=== PATIENT | female | born 1990 | race Caucasian/White ===

== ENCOUNTER 2016-10-29 22:09 | Inpatient (IN) ==
[2016-10-29 22:30] LABS: Bilirubin,Urine Small (Negative); Blood,Urine Trace (Negative); Clarity,Urine Cloudy (Clear); Color,Urine Yellow (Yellow); Glucose,Urine (UA) Normal (Normal); Ketones,Urine Negative (Negative); Leukocyte Esterase,Urine Small (Negative); Nitrite,Urine Negative (Negative); Protein,Urine Negative (Neg-Trace); Urobilinogen,Urine Normal (Normal)
[2016-10-29 22:33] LABS: Bacteria,Urine Moderate per hpf (None-Few); Hyaline Casts,Urine None Seen per lpf (None-Few); Squamous Epithelial Cell,Urine Many per lpf (None-Few)
[2016-10-30 00:18] LABS: Basophils % 0.5 %; Eosinophils # 0.2 K/mcL (0.0-0.6); Eosinophils % 2.2 %; Hematocrit 41.7 % (35.3-44.9); Hemoglobin 13.4 g/dL (11.5-15.4); Immature Granulocytes % 0.2 % (0-4); Lymphocytes # 1.8 K/mcL (0.6-4.6); Lymphocytes % 21.9 %; Mean Corpuscular HGB Conc 32.1 g/dL (31.6-35.5); Mean Corpuscular Hemoglobin 26.2 pg (28.0-33.3); Mean Corpuscular Volume 81.6 fL (83.0-100.0); Mean Platelet Volume 9.8 fL (9.4-12.4); Monocytes # 0.7 K/mcL (0.0-1.3); Monocytes % 7.8 %; Neutrophils # 5.6 K/mcL (1.6-8.9); Platelet Count 265 K/mcL (140-400); Red Blood Count 5.11 M/mcL (3.82-4.97); Segmented Neutrophils % 67.4 %
[2016-10-30 00:33] LABS: Alanine Aminotransferase 959 Units/L (0-55); Albumin 3.9 g/dL (3.5-5.0); Alkaline Phosphatase 328 Units/L (38-126); Amylase 31 Units/L (25-125); Aspartate Amino Transferase 587 Units/L (5-34); BUN/Creatinine Ratio 13 (6-26); Bilirubin,Direct 3.7 mg/dL (0.0-0.5); Bilirubin,Indirect 1.3 mg/dL (0.0-1.2); Blood Urea Nitrogen 9 mg/dL (7-20); Calcium 9.7 mg/dL (8.6-10.8); Carbon Dioxide 25 mEq/L (19-29); Chloride 106 mEq/L (98-109); Glucose 104 mg/dL (70-99); Lipase 16 Units/L (8-78); Osmolality,Calculated 289 (280-300); Potassium 4.2 mEq/L (3.5-4.5); Sodium 140 mEq/L (136-145); Total Protein 7.9 g/dL (6.0-8.3); eGFR For African Americans > 60 (> 60); eGFR For Non-African Americans > 60 (> 60)
[2016-10-30] MEDS ORDERED: 0.9 % Sodium Chloride 1,000 ML IVC ONE (01:52)
--- NOTE | 2016-10-30 02:55 | Emergency Department Note ---
Disposition Clinical Impression: Abdominal pain, Elevated liver function tests Disposition: Admitted As Inpatient Condition: Fair Referrals: NO,PCP [Primary Care Provider] - Forms: Work/School Release, ED Satisfaction Letter Time of Disposition: 05:58 Abdominal Pain HPI - General Chief Complaint: ED Abdominal Pain Stated Complaint: back pain into abdomen Time Seen by Provider: 10/30/16 01:21 Source: patient Mode of arrival: private vehicle Limitations: no limitations Nursing Notes Reviewed: Yes Vital Signs Reviewed: Yes - History of Present Illness HPI Narrative: A very pleasant 26-year-old female patient presents to the emergency department complaining of back pain which radiates into her abdomen. Patient states that this has been present intermittently for the last 48 hours but states that his been present but increasingly worsening over the last several hours. Patient denies any trauma. She denies any fever, chills, vomiting, however does state that she has had some nausea. She denies any chest pain or shortness of breath. She denies any dizziness or lightheadedness. She denies any current . Additionally, patient does note that she is approximately 6-7 weeks she denies any vaginal discharge or bleeding. Pt Subjective Complaint: abdominal pain, flank pain Onset (ago): day(s) Consistency: intermittent, Worsening Location: diffuse Pain Severity: moderate Pain Scale: 6 Quality: aching Radiation: none Migration to: no migration Improves with: nothing Worsens with: nothing Associated symptoms: Reports: nausea. Denies: vomiting, diarrhea, fever, chills , constipation Treatments prior to arrival: none - Related Data Allergies Allergy/AdvReac Type Severity Reaction Status Date / Time No Known Allergies Allergy Verified 10/29/16 22:10 All systems ED: reviewed and negative except as stated. Constitutional: Denies: fever, chills Cardiovascular: Denies: chest pain, palpitations Respiratory: Denies: dyspnea Gastrointestinal: Reports: abdominal pain, nausea. Denies: vomiting, diarrhea, constipation Musculoskeletal: Reports: back pain Integumentary: Denies: rash, abrasion, lesions Neurological: Denies: headache Psychiatric: Denies: anxiety, depression, suicidal thoughts, homicidal thoughts Abdominal Pain PMH - Past Medical History Medical history: Reports: no medical history Female Surgical History: Reports: appendectomy Psychiatric history: Reports: no psych history - Social History Smoking status: Never smoker Alcohol use: Reports: none Drug use: Reports: none Physical Exam - General Limitations: no limitations General appearance: alert, in no apparent distress - Head Head exam: atraumatic, normocephalic, normal inspection - Eye Eye exam: Present: normal appearance, PERRL - Neck Neck exam: Present: normal inspection, full ROM, trachea midline - Chest Chest inspection: Present: normal inspection, symmetric chest wall rise - Respiratory Respiratory exam: Present: normal lung sounds bilaterally. Absent: respiratory distress - Cardiovascular Cardiovascular exam: Present: regular rate, normal rhythm, normal heart sounds - Abdominal Exam Abdominal exam: Present: soft, tenderness, normal bowel sounds. Absent: distention, guarding, rebound, rigidity Abdominal tenderness: Present: diffuse, mild - Extremities Exam Extremities exam: Present: normal inspection, full ROM - Expanded Lower Extremity Exam Gait: observed and normal - Back Exam Back exam: Present: normal inspection, full ROM. Absent: tenderness - Neurological Exam Neurological exam: Present: alert, oriented X3 - Psychiatric Psychiatric exam: Present: normal affect, normal mood - Skin Skin exam: Present: warm, dry, intact, normal color Course Vital Signs Temperature 98.4 F 10/29/16 22:10 Pulse Rate 157 10/29/16 22:10 Respiratory Rate 20 10/29/16 22:10 Blood Pressure 157/83 10/29/16 22:10 O2 Sat by Pulse Oximetry 97 10/29/16 22:10 Temperature 98.4 F 10/29/16 22:10 Pulse Rate 52 10/30/16 05:00 Respiratory Rate 20 10/30/16 05:00 Blood Pressure 128/88 10/30/16 05:00 O2 Sat by Pulse Oximetry 97 10/30/16 05:00 Oxygen Delivery Oxygen Delivery Room Air Abdominal Pain - Lab Data Lab results reviewed: Yes I reviewed the patient's lab results. Result diagrams: 10/29/16 23:59 10/29/16 23:59 Lab Results 10/29/16 10/29/16 10/29/16 Range/Units 22:21 23:59 23:59 WBC 8.3 (4.3-11.1) K/mcL RBC 5.11 H (3.82-4.97) M/mcL Hgb 13.4 (11.5-15.4) g/dL Hct 41.7 (35.3-44.9) % MCV 81.6 L (83.0-100.0) fL MCH 26.2 L (28.0-33.3) pg MCHC 32.1 (31.6-35.5) g/dL RDW 13.0 (11.5-14.5) % Plt Count 265 (140-400) K/mcL MPV 9.8 (9.4-12.4) fL Immature Gran % 0.2 (0-4) % Seg Neutrophils % 67.4 % Lymphocytes % 21.9 % Monocytes % 7.8 % Eosinophils % 2.2 % Basophils % 0.5 % Neutrophils # 5.6 (1.6-8.9) K/mcL Lymphocytes # 1.8 (0.6-4.6) K/mcL Monocytes # 0.7 (0.0-1.3) K/mcL Eosinophils # 0.2 (0.0-0.6) K/mcL Basophils # 0.0 (0.0-0.2) K/mcL Sodium 140 (136-145) mEq/L Potassium 4.2 (3.5-4.5) mEq/L Chloride 106 (98-109) mEq/L Carbon Dioxide 25 (19-29) mEq/L BUN 9 (7-20) mg/dL Creatinine 0.69 (0.57-1.11) mg/dL Est GFR ( Amer) > 60 (> 60) Est GFR (Non-Af Amer) > 60 (> 60) BUN/Creatinine Ratio 13 (6-26) Glucose 104 H (70-99) mg/dL Calculated Osmolality 289 (280-300) Calcium 9.7 (8.6-10.8) mg/dL Total Bilirubin 5.0 H (0.2-1.2) mg/dL Direct Bilirubin 3.7 H (0.0-0.5) mg/dL Indirect Bilirubin 1.3 H (0.0-1.2) mg/dL AST 587 H (5-34) Units/L ALT 959 H (0-55) Units/L Alkaline Phosphatase 328 H (38-126) Units/L Serum Total Protein 7.9 (6.0-8.3) g/dL Albumin 3.9 (3.5-5.0) g/dL Globulin 4.0 H (2.4-3.5) g/dL Albumin/Globulin Ratio 1.0 L (1.1-2.2) Amylase 31 (25-125) Units/L Lipase 16 (8-78) Units/L Urine Color Yellow (Yellow) Urine Clarity Cloudy A (Clear) Urine pH 7.0 (5.0-8.0) pH Units Ur Specific Rebuck 1.010 (1.010-1.025) Urine Protein Negative (Neg-Trace) mg/dL Urine Glucose (UA) Normal (Normal) mg/dL Urine Ketones Negative (Negative) mg/dL Urine Blood Trace H (Negative) Urine Nitrite Negative (Negative) Urine Bilirubin Small H (Negative) Urine Urobilinogen Normal (Normal) mg/dL Ur Leukocyte Esterase Small H (Negative) Urine Microscopic RBC 3-5 H (0-3) per hpf Urine Microscopic WBC 3-5 H (0-3) per hpf Ur Squamous Epith Cells Many H (None-Few) per lpf Urine Bacteria Moderate H (None-Few) per hpf Hyaline Casts None Seen (None-Few) per lpf Ur Culture Indicated? YES A (NO) - Radiology Data Radiology results reviewed: Yes I reviewed the patient's radiology results.
[2016-10-30] MEDS ORDERED: *HR* Morphine 2 MG/ML SYRINGE IVP ONE (03:34)
[2016-10-30] MEDS ORDERED: Ondansetron 4 MG/2 ML VIAL IVP ONE ×2 (03:35→13:12)
--- NOTE | 2016-10-30 06:02 | Emergency Department Note ---
Attestation Statement - Attestation Attestation: For this encounter, I have reviewed the PRODUCE SPECIALIST or PA documentation, treatment plan, and medical decision making; and I have had face to face time with this patient. 26-year-old female presents to the emergency department with complaint of bilateral upper abdominal pain radiating around to the back. She has had the pain off and on for the past few days but is getting progressively worse. Some nausea but no vomiting. No diarrhea. No fever. On examination patient is a well-developed well-nourished young female in no acute distress. She is alert and oriented 3. There is no cyanosis or diaphoresis. Breath sounds are clear and equal bilaterally. Heart regular rate and rhythm. Abdomen is soft with normal bowel sounds. There is mild bilateral upper abdominal tenderness with moderate right upper quadrant tenderness. Labs reviewed and showed elevated hepatic enzymes. ET showed gallstones with dilated biliary tree. A gallbladder ultrasound was obtained and showed multiple stones with some adjacent inflammatory changes. Prominence of the intrahepatic and extrahepatic biliary tree. Cannot exclude a distal obstructing stone. ERCP or MRCP recommended. We will consult the hospitalist for admission. The hospitalist, Dr. Townsend, was consulted and accepted admission of the patient.
[2016-10-30] MEDS ORDERED: *HR* Morphine 2 MG/ML SYRINGE IVP PRN (07:43)
[2016-10-30] MEDS ORDERED: Naloxone 0.4 MG/ML INJ IVP PRN (07:43)
[2016-10-30] MEDS ORDERED: Acetaminophen 325 MG TABLET PO PRN (07:43)
[2016-10-30] MEDS ORDERED: *HR* Promethazine 25 MG/ML VIAL IVP PRN ×2 (07:43→13:12)
--- NOTE | 2016-10-30 08:18 | Internal Med History&Physical ---
Date of Encounter: 10/30/16 Time of Encounter: 08:00 Assessment and Plan (1) Obstructive jaundice Current visit: Yes Status: Acute Patient presented with obstructive jaundice with possible biliary obstruction. We will consult GI for possible ERCP. Keep nothing by mouth. Symptomatic treatment. IV hydration. Monitor vitals closely. Patient will eventually need laparoscopic cholecystectomy after acute obstruction relieved. Moderate risk for complications. Internal Medicine - H&P: HPI Chief complaint: Abdominal pain Admitted From: Emergency Dept Plans for Post Hospital Care: Home History of present illness: Ms. Perry is a 26 year old female patient with no significant past medical history who presented to the ER with complaints of left back and right upper quadrant abdominal pain. Symptoms began on and have been progressively getting worse. The pain is intermittent and cramping and gets as severe as 10 out of 10 in severity. She had an episode of nausea and vomiting. She has never had similar issues in the past. She had appendectomy several years back but no other abdominal surgery. No fever chills or night sweats. No hematuria or dysuria. Past Med Surg Social Fam HX - Past Medical History Attestation: Yes The following information was validated with the patient. Source: patient Medical history: no medical history Psychiatric history: no psych history - Social History Smoking Status: Never smoker Smokeless Tobacco Status: No Alcohol use: none Drug use: none - Additional Family History Additional family history: Reviewed and found to be noncontributory at this time Internal Medicine - H&P: Meds Allergies No Known Allergies Allergy (Verified 10/29/16 22:10) All Systems PM: A 10-system review of systems was performed and is negative for pertinent findings except as documented above in the HPI. - Constitutional Constitutional: no chills, no fever(s), no night sweats - EENT Eyes: no change in vision, no discharge, no pain, no photophobia Ears: no ear discharge, no ear pain, no tinnitus Nose, mouth and throat: no dysphagia, no nasal discharge, no neck pain, no sore throat - Cardiovascular Cardiovascular ROS IM: no chest pain, no diaphoresis, no dyspnea, no lightheadedness, no palpitations, no syncope - Respiratory Respiratory: no cough, no dyspnea, no wheezing, no excessive phlegm production - Gastrointestinal Gastrointestinal: abdominal pain, nausea, vomiting, no diarrhea, no hematemesis , no hematochezia, no melena - Genitourinary Genitourinary: no change in urinary stream, no dysuria, no flank pain, no hematuria - Musculoskeletal Musculoskeletal ROS IM: no numbness, no tingling - Integumentary Integumentary IM: no rash, no unusual bruising - Neurological Neurological ROS: no confusion, no convulsions, no focal weakness, no numbness, no tingling, no tremor(s) - Hematologic/Lymphatic Hematologic/Lymphatic: no easy bruising - Constitutional Vitals: Temp Pulse Resp BP Pulse Ox 97.7 F 56 18 118/73 96 10/30/16 07:37 10/30/16 07:37 10/30/16 07:37 10/30/16 07:37 10/30/16 07:37 General appearance: Present: cooperative, mild distress, A&O X 3, obese, answers questions appropriately - Neck Neck exam general surgery: Present: supple, trachea midline. Absent: lymphadenopathy - Respiratory Respiratory exam: Present: CTAB. Absent: accessory muscle use, rales, rhonchi, wheezes - Cardiovascular Cardiovascular exam: Present: RRR, +S1, +S2. Absent: diastolic murmur, gallop, rubs, systolic murmur - GI/Abdominal GI/Abdominal exam: Present: normal bowel sounds, soft, tenderness (Right upper quadrant Arias's positive), no peritoneal signs. Absent: distended - Extremities Exam Extremities exam: Present: warm, radial pulses palpable and symetrical. Absent : calf tenderness, cyanotic, pedal edema - Neurological Exam Neurological exam: Present: alert, oriented X3, no focal deficits. Absent: facial droop, speech deficit - Skin Skin exam: Present: dry, intact Additional comments: Jaundice Internal Med - H&P Results - Labs CBC & Chem 7: 10/29/16 23:59 10/29/16 23:59 - Impressions Impressions Abdomen/Pelvis CT 10/30/16 01:52 IMPRESSION: 1. There are gallstones with prominence of the intra and extrahepatic biliary tree. A distal obstructing stone cannot entirely be excluded. There are no adjacent inflammatory changes surrounding the gallbladder. 2. Physiologic right ovarian follicle measuring 1.6 x 1.0 cm. D/ / 10/30/2016 07:10:00 Ken Don MD / jm Interpreting Provider: Ken Don MD Gallbladder Ultrasound 10/30/16 03:34 IMPRESSION: 1. There are multiple gallstones without adjacent inflammatory changes. There is prominence of the intra and extrahepatic biliary tree. The common bile duct measures up to 7 mm. A distal obstructing stone cannot be excluded. MRCP versus ERCP may be of benefit for further evaluation. D/ / 10/30/2016 07:54:01 Ken Don MD / noe Interpreting Provider: Ken Don MD - Attending Attestation This document has been at least partially created by [employer] recognition technology by Dr. Warren. Errors in grammar, wording or other phrases may exist. If errors are found after the documentation is signed, they will be addressed individually in the addendum section of this document when appropriate.
[2016-10-30] MEDS: 0.9 % Sodium Chloride 1,000 ML IVC SCH (09:12)
[2016-10-30] MEDS: Pantoprazole 40 MG VIAL IVP SCH (09:12)
[2016-10-30] MEDS ORDERED: *HR* Midazolam HCl 2 MG/2 ML VIAL ONE (11:10)
[2016-10-30] MEDS ORDERED: *HR* Propofol 200 MG/20 ML VIAL IVP ONE (11:10)
[2016-10-30] MEDS ORDERED: *HR* FentaNYL (PF) 100 MCG/2 ML VIAL ONE (11:10)
[2016-10-30] MEDS ORDERED: *HR* Rocuronium Bromide 50 MG/5 ML VIAL ONE (11:10)
[2016-10-30] MEDS ORDERED: Lidocaine -MPF 4% 5 ML AMPUL ONE (11:10)
[2016-10-30] MEDS ORDERED: Lidocaine -MPF 2% 2 ML VIAL ONE (11:10)
--- NOTE | 2016-10-30 12:15 | Anesthesia Evaluation PreOp ---
Date of Encounter: 10/30/16 Time of Encounter: 12:13 - Past History Planned Operation: EUS, ERCP Cardiac History: Denies any Significant Hx Pulmonary History: Denies Any Significant HX PIE BOTTOMER History: Denies Any Significant HX Other Medical History: Denies Any Significant HX Anesthesia History: No Prior Anesthetic Complications, Past Anesthesia ( appendectomy) Test: Negative Alcohol Use: none Drug use: none Medications and Allergies Allergies No Known Allergies Allergy (Verified 10/29/16 22:10) - Meds/Allergy Pre-op Review Medications Reviewed: Yes Allergies Reviewed: Yes Beta Blockers on Current Med List: No Anesthesia Results - Labs 10/29/16 23:59 10/29/16 23:59 Anesthesia Exam Vital Signs/O2 Sat, Most Current Temp Pulse Resp BP Pulse Ox 98.4 F 56 18 120/75 96 10/30/16 11:27 10/30/16 11:27 10/30/16 11:27 10/30/16 11:27 10/30/16 11:27 Height: 1.88m Weight: 87kg NPO (# of Hours): >8 Pain Scale: 0 Pain Scale Used: Numeric (1 - 10) - HEENT Pupil (Motor): Pupils equal, EOMI Mallampati: II Teeth: Normal Oral Opening: Greater than 3 - PIE BOTTOMER LOC: Oriented PIE BOTTOMER Motor: Normal RUE, Normal LUE, Normal RLE, Normal LLE, Normal Face PIE BOTTOMER Sensory: Normal: RUE, LUE, RLE, LLE, Face - Cardiac Rhythm: Regular - Pulmonary Breath Sounds: bilateral Clear Respiratory Effort: Symmetrical Anesthesia Assess/Plan ASA Score: 1 Modified [place] Scale for Level of Consciousness: Cooperative, oriented, and tranquil Anesthetic Plan: General (r/b/a discussed, questions answered, consent obtained) Monitoring Plan: Standard Monitors Recovery Plan: PACU
[2016-10-30] MEDS ORDERED: Indomethacin 50 MG SUPP.RECT RC ONE (12:29)
[2016-10-30] MEDS ORDERED: Ringers Solution, Lactated 1,000 ML IVC SCH ×2 (12:30→13:15)
--- NOTE | 2016-10-30 12:56 | Gastroenterology Consult Note ---
Date of Encounter: 10/30/16 Time of Encounter: 12:40 - Assessment and plan (1) Obstructive jaundice Current Visit: Yes Status: Acute Assessment and plan: Patient with gallstone now with obstructive jaundice concerning for a CBD stone in the bile duct. No signs symptom of cholangitis. CT and ultrasound with no obvious CBD stone. Recommendation patient will have an EUS done to make sure there is a CBD stone and if EUS is abnormal showing a CBD stone then she will need an ERCP procedure including risk were discussed with the patient and she voiced understanding and in agreement - Time Spent With Patient Total time spent is greater than 50% in coordination of care (as documented) at patient's floor/unit and/or counseling patient: GI History of Present Illness - Data of Consult Consult date: 10/30/16 Requesting Physician: Eulalio Townsend MD - Consult Narrative Reason for consult: Lamine History of present illness: Ms. Perry is a 26 year old female asked to see to see because of elevated liver function tests along with bilirubin. Per patient she been having upper abdominal pain on and off for the last more than a month. On morning she had epigastric pain that was radiating across upper abdomen and to her back and lasted the whole day finally she came to the hospital the next day and was found to have elevated liver function testing. She still has pain more so in her back denies any fever or chills. Past Med Surg Social Fam HX - Past Medical History Medical history: no medical history Psychiatric history: no psych history - Past Surgical History Surgical History: appendectomy - Social History Smoking Status: Never smoker Smokeless Tobacco Status: No Alcohol use: none Drug use: none Review of Systems: GI: as per [place]. Complain of some itching and dark color of the urine GENERAL: denies fever, has some chills EYES: denies yellow discoloration ENT: denies pain with swallowing or difficulty swallowing CARDIO: denies chest pain, palpitations RESP: denies shortness of breath or wheezing : denies change in color of urine NEURO: denies any weakness HEME: Denies any bruising MS: denies joint pain, joint swelling or back pain. DERM: denies rash or itching PSYCH: denies history of: depression or anxiey - Constitutional Vitals: Temp Pulse Resp BP Pulse Ox 98.4 F 71 18 132/72 95 10/30/16 11:27 10/30/16 12:15 10/30/16 12:15 10/30/16 12:15 10/30/16 12:15 - Head Head exam: Present: atraumatic - Eye Eye exam: Present: scleral icterus, sclera anicteric - Neck Neck exam general surgery: Present: supple - Respiratory Additional comments: BiLateral good air entry no crackles wheezing - Cardiovascular Cardiovascular exam: Present: +S1, +S2 Additional comments: Rhythm is regular does has a soft murmur - GI/Abdominal Additional comments: Soft does has mild tenderness in the epigastric area. - Extremities Exam Extremities exam: Present: normal inspection, warm Additional comments: No clubbing cyanosis or edema - Skin Skin exam: Present: dry, warm Additional comments: No obvious yellow discoloration Results - Labs CBC & Chem 7: 10/29/16 23:59 10/29/16 23:59 Labs: Last Result Calcium 9.7 mg/dL (8.6-10.8) 10/29/16 23:59 Entire Visit Hgb 13.4 g/dL (11.5-15.4) 10/29/16 23:59 Hct 41.7 % (35.3-44.9) 10/29/16 23:59 Total Bilirubin 5.0 mg/dL (0.2-1.2) H 10/29/16 23:59 AST 587 Units/L (5-34) H 10/29/16 23:59 ALT 959 Units/L (0-55) H 10/29/16 23:59 Amylase 31 Units/L (25-125) 10/29/16 23:59 Lipase 16 Units/L (8-78) 10/29/16 23:59 Consult Discharge Plan - Plan Referrals: NO,PCP [Primary Care Provider] -
[2016-10-30] MEDS ORDERED: Ondansetron 4 MG/2 ML VIAL ONE (13:07)
[2016-10-30] MEDS ORDERED: Neostigmine Methylsulfate 3 MG/3 ML SYRINGE ONE (13:07)
[2016-10-30] MEDS ORDERED: Dexamethasone 4 MG/ML VIAL ONE (13:07)
[2016-10-30] MEDS ORDERED: *HR* HYDROmorphone (PF) 1 MG/ML SYRINGE IVP PRN (13:12)
[2016-10-30] MEDS ORDERED: *HR* Meperidine 25 MG/ML SYRINGE IVP PRN (13:12)
--- NOTE | 2016-10-30 14:31 | Anesthesia Evaluation Post Op ---
Date of Encounter: 10/30/16 Time of Encounter: 14:29 - Vital Signs Vital Signs: Vital Signs/O2 Sat, Most Current Temp Pulse Resp BP Pulse Ox 99 F 58 20 111/64 95 10/30/16 14:05 10/30/16 14:25 10/30/16 14:25 10/30/16 14:25 10/30/16 14:25 - Lungs Lungs: Clear Ascult./Percussion - Airway Airway: Non-obstructed - Cardiovascular Regular Rate - Mental Status Mental Status: Asleep with brisk response to light stimulation - Pain Pain Scale: 0 Pain Scale used: Numeric (1 - 10) - Nausea Vomiting Nausea Vomiting: Not Present - Hydration Hydration: NPO - Discharge PostOp Status: Transfer Patient to floor Attestation: I have assessed this patient and find they meet discharge criteria.
[2016-10-30] MEDS: Ketorolac 30 MG/ML VIAL IVP PRN (14:56)
[2016-10-30] MEDS: *HR* Heparin 5,000 UNIT/ML VIAL SQ SCH (17:55)
[2016-10-31] MEDS: 0.9 % Sodium Chloride 1,000 ML IVC SCH (01:23)
[2016-10-31 05:17] LABS: Basophils % 0.2 %; Eosinophils # 0.1 K/mcL (0.0-0.6); Eosinophils % 1.1 %; Hematocrit 38.5 % (35.3-44.9); Hemoglobin 12.2 g/dL (11.5-15.4); Immature Granulocytes % 0.6 % (0-4); Lymphocytes # 2.4 K/mcL (0.6-4.6); Lymphocytes % 23.2 %; Mean Corpuscular HGB Conc 31.7 g/dL (31.6-35.5); Mean Corpuscular Hemoglobin 25.9 pg (28.0-33.3); Mean Corpuscular Volume 81.7 fL (83.0-100.0); Mean Platelet Volume 9.8 fL (9.4-12.4); Monocytes # 0.7 K/mcL (0.0-1.3); Neutrophils # 6.9 K/mcL (1.6-8.9); Platelet Count 244 K/mcL (140-400); Red Blood Count 4.71 M/mcL (3.82-4.97); Red Cell Distribution Width 12.9 % (11.5-14.5); Segmented Neutrophils % 67.9 %
[2016-10-31] MEDS: *HR* Heparin 5,000 UNIT/ML VIAL SQ SCH (05:29)
[2016-10-31 05:30] LABS: Alanine Aminotransferase 513 Units/L (0-55); Albumin 3.3 g/dL (3.5-5.0); Alkaline Phosphatase 257 Units/L (38-126); Aspartate Amino Transferase 108 Units/L (5-34); BUN/Creatinine Ratio 13 (6-26); Blood Urea Nitrogen 8 mg/dL (7-20); Calcium 8.8 mg/dL (8.6-10.8); Carbon Dioxide 24 mEq/L (19-29); Chloride 109 mEq/L (98-109); Globulin 3.4 g/dL (2.4-3.5); Glucose 91 mg/dL (70-99); Osmolality,Calculated 290 (280-300); Potassium 3.5 mEq/L (3.5-4.5); Sodium 141 mEq/L (136-145); Total Protein 6.7 g/dL (6.0-8.3); eGFR For African Americans > 60 (> 60); eGFR For Non-African Americans > 60 (> 60)
[2016-10-31 05:31] LABS: Bilirubin,Total 1.8 mg/dL (0.2-1.2)
[2016-10-31] MEDS: Pantoprazole 40 MG VIAL IVP SCH (07:39)
[2016-10-31] MEDS: Ketorolac 30 MG/ML VIAL IVP PRN (07:39)
--- NOTE | 2016-10-31 12:08 | Anesthesia Evaluation PreOp ---
Date of Encounter: 10/31/16 Time of Encounter: 12:20 - Past History Planned Operation: Lap Cholecystectomy Cardiac History: Denies any Significant Hx Pulmonary History: Denies Any Significant HX COMPLAINTS COORDINATOR History: Denies Any Significant HX Other Medical History: Denies Any Significant HX Anesthesia History: No Prior Anesthetic Complications : No Test: Negative Alcohol Use: none Drug use: none Medications and Allergies Ibuprofen [Ibuprofen] 800 mg PO TID PRN 10/30/16 [History] Allergies No Known Allergies Allergy (Verified 10/29/16 22:10) - Meds/Allergy Pre-op Review Medications Reviewed: Yes Allergies Reviewed: Yes Beta Blockers on Current Med List: No Anesthesia Results - Labs 10/31/16 04:56 10/31/16 04:56 Anesthesia Exam O2 Sat Weight 88.8 kg O2 Sat by Pulse Oximetry 93 O2 Sat by Pulse Oximetry 97 O2 Sat by Pulse Oximetry 97 O2 Sat by Pulse Oximetry 96 O2 Sat by Pulse Oximetry 94 O2 Sat by Pulse Oximetry 95 O2 Sat by Pulse Oximetry 96 O2 Sat by Pulse Oximetry 95 O2 Sat by Pulse Oximetry 97 O2 Sat by Pulse Oximetry 98 O2 Sat by Pulse Oximetry 95 Vital Signs Temp Pulse Resp BP Pulse Ox 98.4 F 157 20 157/83 97 10/29/16 22:10 10/29/16 22:10 10/29/16 22:10 10/29/16 22:10 10/29/16 22:10 Height: 5'2 Weight: 195 lbs NPO (# of Hours): [place] Pain Scale: 0 - HEENT Pupil (Motor): Pupils equal, EOMI Mallampati: II Teeth: Normal Oral Opening: Greater than 3 - COMPLAINTS COORDINATOR LOC: Oriented COMPLAINTS COORDINATOR Motor: Normal RUE, Normal LUE, Normal RLE, Normal LLE, Normal Face COMPLAINTS COORDINATOR Sensory: Normal: RUE, LUE, RLE, LLE, Face - Cardiac Rhythm: Regular Murmur: None JVD: No Carotid Bruit: No - Pulmonary Breath Sounds: bilateral Clear Respiratory Effort: Symmetrical Anesthesia Assess/Plan ASA Score: 1 Modified [place] Scale for Level of Consciousness: Cooperative, oriented, and tranquil Anesthetic Plan: General Monitoring Plan: Standard Monitors Recovery Plan: PACU (Discussed GA, agrees to proceed)
--- NOTE | 2016-10-31 12:39 | General Surgery Consult Note ---
Date of Encounter: 10/31/16 Time of Encounter: 12:05 History of Present Illness Consult date: 10/30/16 Reason for consult: gallstones (Obstructive jaundice, cholecystitis and choledocholithiasis) Requesting physician: Martín Warren History of present illness: 26-year-old female referred to surgical services after presenting to [facility] ED, 10/30/16, with approximately a 48 hour history of back pain radiating into her abdomen. Evaluation completed in the ER including blood work and CT demonstrated markedly abnormal LFTs with hyperbilirubinemia of 5.0. CT demonstrated gallstones with prominence of the intra-and extrahepatic biliary ducts. A distal obstructing stone was not seen but the biliary ductal dilatation was suggestive. There were no adjacent inflammatory changes surrounding the gallbladder. The CT also demonstrated gravity dependent atelectasis in both lung bases, a physiologic right ovarian follicle measuring 1.6 x 1.0 cm, and fluid in the endometrial canal. USGB showed gallstones and biliary sludge without gallbladder wall thickening or pericholecystic fluid, the common bile duct was mildly enlarged at 7 mm. Choledocholithiasis was not definitively identified. Endoscopic ultrasound and ERCP was completed by Dr. Bundy 10/30/16 with identification and evacuation of multiple distal common duct stones. Since the ERCP with choledocholirthotomy the patient is feeling much improved. The abdominal pain is resolved, there is been no nausea or vomiting. Surgery was consulted to address the cholelithiasis. Laboratories completed this morning show white count of 10.1, hemoglobin 12.2, hematocrit 38.5. Platelet count 244,000. Electrolytes are within normal limits (potassium borderline at 3.5), BUN 8, creatinine 0.62. Bilirubin has improved to 1.8, AST has improved to 108, ALP 513, alkaline phosphatase 257. Treatment options include surgery today versus as an outpatient risking recurrent biliary colic as well as obstructive jaundice. The patient is a reasonable candidate for laparoscopic cholecystectomy but understands that an open cholecystectomy may become necessary. The patient wishes to proceed with surgery. Risks of surgery include hemorrhage, infection , intra-abdominal abscess, bile leak, injury to adjacent ducts, vessels, organs , and bowel. Possible postcholecystectomy diarrhea was also discussed. The patient indicates that she has been symptomatic, to a much lesser degree, over the past several months. The symptoms were increasing in frequency and severity towards the end of her and since her delivery approximately one month ago. Past medical history is otherwise unremarkable Surgical history: Appendectomy in the remote past, [facility] Allergies: No known drug allergies Medications: The patient is on no routine home meds Social history: Patient is G2, P2; the children are aged 7 and 1 month. The patient has never smoked; she denies any alcohol or illicit drug use. Family history: Noncontributory On physical examination: Overweight, age-appropriate woman in no acute distress. Height 1.5 m, weight 88.8 kg, BMI 35.8 The patient is afebrile, 97.8, pulse 83, respirations 18, blood pressure 124/ 80. SPO2 on room air 93-97%. Skin: Warm without obvious jaundice; sclerae were mildly jaundiced Lungs: Clear to auscultation, no obvious pain on deep inspiration Cardiac: Regular rate, no appreciable murmurs Abdomen: Obese, soft, nontender. No discernible intra-abdominal masses, fullness, or rebound. Active bowel sounds. Several striae noted on the anterior abdominal wall as well as a well- healed oblique incision in the right lower quadrant c/w prior appendectomy Extremities: No obvious clubbing cyanosis or edema. Impression: 26-year-old admitted 10/30/2016 with abdominal pain and obstructive jaundice, due to choledocholithiasis. Patient also diagnosed with cholelithiasis. The choledocholithiasis has been address via ERCP with choledocholithotomy. Surgery has been consulted to see the patient for the cholelithiasis. Cholecystectomy is recommended to prevent recurrent abd pain and obstructive jaundice. The patient is a reasonable candidate for laparoscopic cholecystectomy but understands that an open cholecystectomy may become necessary. Surgery has been scheduled for today. Past Med Surg Social Fam HX - Past Medical History Medical history: no medical history Psychiatric history: no psych history - Past Surgical History Surgical History: appendectomy - Social History Smoking Status: Never smoker Smokeless Tobacco Status: No Alcohol use: none Drug use: none Medications and Allergies Ibuprofen [Ibuprofen] 800 mg PO TID PRN 10/30/16 [History] Allergies No Known Allergies Allergy (Verified 10/29/16 22:10) Review of Systems All systems PM: A 10-system review of systems was performed and is negative for pertinent findings except as documented above in the HPI. General Surgery Exam Initial Vital Signs Temp Pulse Resp BP Pulse Ox 98.4 F 157 20 157/83 97 10/29/16 22:10 10/29/16 22:10 10/29/16 22:10 10/29/16 22:10 10/29/16 22:10 Exam Initial Vital Signs Temp Pulse Resp BP Pulse Ox 98.4 F 157 20 157/83 97 10/29/16 22:10 10/29/16 22:10 10/29/16 22:10 10/29/16 22:10 10/29/16 22:10 Results - Labs 10/31/16 04:56 10/31/16 04:56 Abnormal lab results MCV 81.7 fL (83.0-100.0) L 10/31/16 04:56 MCH 25.9 pg (28.0-33.3) L 10/31/16 04:56 Total Bilirubin 1.8 mg/dL (0.2-1.2) H D 10/31/16 04:56 Direct Bilirubin 3.7 mg/dL (0.0-0.5) H 10/29/16 23:59 Indirect Bilirubin 1.3 mg/dL (0.0-1.2) H 10/29/16 23:59 AST 108 Units/L (5-34) H 10/31/16 04:56 ALT 513 Units/L (0-55) H 10/31/16 04:56 Alkaline Phosphatase 257 Units/L (38-126) H 10/31/16 04:56 Albumin 3.3 g/dL (3.5-5.0) L 10/31/16 04:56 Albumin/Globulin Ratio 1.0 (1.1-2.2) L 10/31/16 04:56 Urine Clarity Cloudy (Clear) A 10/29/16 22:21 Urine Blood Trace (Negative) H 10/29/16 22:21 Urine Bilirubin Small (Negative) H 10/29/16 22:21 Ur Leukocyte Esterase Small (Negative) H 10/29/16 22:21 Urine Microscopic RBC 3-5 per hpf (0-3) H 10/29/16 22:21 Urine Microscopic WBC 3-5 per hpf (0-3) H 10/29/16 22:21 Ur Squamous Epith Cells Many per lpf (None-Few) H 10/29/16 22:21 Urine Bacteria Moderate per hpf (None-Few) H 10/29/16 22:21 Ur Culture Indicated? YES (NO) A 10/29/16 22:21 Diabetes panel 10/31/16 Range/Units 04:56 Sodium 141 (136-145) mEq/L Potassium 3.5 (3.5-4.5) mEq/L Chloride 109 (98-109) mEq/L Carbon Dioxide 24 (19-29) mEq/L BUN 8 (7-20) mg/dL Creatinine 0.62 (0.57-1.11) mg/dL Glucose 91 (70-99) mg/dL Calcium 8.8 (8.6-10.8) mg/dL AST 108 H (5-34) Units/L ALT 513 H (0-55) Units/L Alkaline Phosphatase 257 H (38-126) Units/L Albumin 3.3 L (3.5-5.0) g/dL Calcium panel 10/31/16 Range/Units 04:56 Calcium 8.8 (8.6-10.8) mg/dL Albumin 3.3 L (3.5-5.0) g/dL Pituitary panel 10/31/16 Range/Units 04:56 Sodium 141 (136-145) mEq/L Potassium 3.5 (3.5-4.5) mEq/L Chloride 109 (98-109) mEq/L Carbon Dioxide 24 (19-29) mEq/L BUN 8 (7-20) mg/dL Creatinine 0.62 (0.57-1.11) mg/dL Glucose 91 (70-99) mg/dL Calcium 8.8 (8.6-10.8) mg/dL Adrenal panel 10/31/16 Range/Units 04:56 Sodium 141 (136-145) mEq/L Potassium 3.5 (3.5-4.5) mEq/L Chloride 109 (98-109) mEq/L Carbon Dioxide 24 (19-29) mEq/L BUN 8 (7-20) mg/dL Creatinine 0.62 (0.57-1.11) mg/dL Glucose 91 (70-99) mg/dL Calcium 8.8 (8.6-10.8) mg/dL Total Bilirubin 1.8 H D (0.2-1.2) mg/dL AST 108 H (5-34) Units/L ALT 513 H (0-55) Units/L Alkaline Phosphatase 257 H (38-126) Units/L Albumin 3.3 L (3.5-5.0) g/dL All other labs normal. Consult Discharge Plan - Plan Referrals: NO,PCP [Primary Care Provider] -
[2016-10-31] MEDS ORDERED: *HR* Propofol 200 MG/20 ML VIAL IVP ONE (12:41)
[2016-10-31] MEDS ORDERED: *HR* Rocuronium Bromide 50 MG/5 ML VIAL ONE (12:41)
[2016-10-31] MEDS ORDERED: *HR* FentaNYL (PF) 100 MCG/2 ML VIAL ONE (12:41)
[2016-10-31] MEDS ORDERED: Ondansetron 4 MG/2 ML VIAL ONE (12:41)
[2016-10-31] MEDS ORDERED: Dexamethasone 4 MG/ML VIAL ONE (12:41)
[2016-10-31] MEDS ORDERED: Lidocaine -MPF 2% 2 ML VIAL ONE (12:41)
[2016-10-31] MEDS ORDERED: Lidocaine -MPF 4% 5 ML AMPUL ONE (12:43)
--- NOTE | 2016-10-31 12:54 | Electrocardiograph Report ---
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
[2016-10-31] MEDS ORDERED: Bupivacaine/EPI 1:200k 0.25%PF 30 ML VIAL ONE (13:17)
[2016-10-31] MEDS ORDERED: *HR* HYDROmorphone 2 MG/ML SYRINGE ONE (14:19)
[2016-10-31] MEDS ORDERED: Ketorolac 30 MG/ML VIAL ONE (14:20)
[2016-10-31] MEDS ORDERED: Neostigmine Methylsulfate 3 MG/3 ML SYRINGE ONE (14:28)
[2016-10-31] MEDS ORDERED: Ringers Solution, Lactated 500 ML IVC ONE (14:59)
[2016-10-31] MEDS ORDERED: *HR* HYDROmorphone (PF) 1 MG/ML SYRINGE IVP PRN (14:59)
[2016-10-31] MEDS ORDERED: Acetaminophen 325 MG TABLET PO PRN (14:59)
[2016-10-31] MEDS ORDERED: Ringers Solution, Lactated 1,000 ML IVC SCH (15:00)
--- NOTE | 2016-10-31 15:04 | Anesthesia Evaluation Post Op ---
Date of Encounter: 10/31/16 Time of Encounter: 15:20 - Vital Signs Vital Signs: Vital Signs/O2 Sat/Glucose, Most Current Temp Pulse Resp BP Pulse Ox 10/31/16 14:56 97.1 F L 64 16 126/77 100 - Lungs Lungs: Clear Ascult./Percussion - Airway Airway: Non-obstructed - Cardiovascular Regular Rate - Mental Status Mental Status: Alert & Oriented, Answers Appropriately - Pain Pain Scale: 0 - Nausea Vomiting Nausea Vomiting: Not Present - Hydration Hydration: NPO - Discharge PostOp Status: Transfer Patient to floor
--- NOTE | 2016-10-31 15:04 | Operative Note ---
Date of procedure: 10/31/16 Pre-op diagnosis: obstructive jaundice, choledocholithiasis, cholelithiasis Post-op diagnosis: same Procedure: Laparoscopic cholecystectomy Complications: None apparent Anesthesia: GETA Local Anesthetics: 0.25% Sensorcaine HCL with Epinephrine 1:200,000 SubQ (cc) ( 30 mL) Surgeon: Nigel Bose Estimated blood loss (cc): 10 IV fluids (cc): 600 Specimen: gallbladder Condition: stable Disposition: PACU Procedure in Detail: The patient was brought to the operating room where she was placed supine upon the operating room table. The patient was appropriately identified as to person and procedure. The accuracy of this information was confirmed by the procedure team. Once this was accomplished, the patient was intubated and anesthetized under the supervision of Dr. Theo Romero. The abdomen was prepped and draped in the usual sterile fashion. When examined under anesthesia , there was no obvious hepatomegaly or other intra abdominal masses. The gallbladder was not palpable. Several milliliters of 0.25% bupivacaine with 1- 200,000 epinephrine was infiltrated into the infraumbilical skin. A small transverse incision was made. Dissection was carried to the fascia. Additional bupivacaine with epinephrine was infiltrated into the fascia before it was incised. The fascia was then grasped and elevated. An 11 mm Xcel port was established. The rigid laparoscope was placed within the obturator to visualize passage through the layers of the anterior abdominal wall. When the abdominal cavity was accessed, the obturator was replaced by the rigid laparoscope, the abdomen was insufflated with gaseous carbon dioxide. There was no obvious visible injury from establishing the port. Under direct visualization, 3 additional ports were placed along the right costal margin in the subxiphoid, midclavicular, and anterior axillary line. Each site was infiltrated with the bupivacaine with epinephrine solution. The gallbladder was grasped and elevated. There were multiple adhesions, primarily of omentum and duodenum, to the fundus and in the infundibulum of the gallbladder. These adhesions were lysed and/or dissected with the aid of the Ethicon harmonic nadia. The hepatoduodenal ligament was dissected and the cystic duct was skeletonized. It was clipped once proximally and twice distally before it was divided. The cystic artery was identified, skeletonized, clipped twice proximally, once distally and divided. The gallbladder was dissected from the liver bed using the Ethicon harmonic nadia. When the gallbladder was from the liver bed, it was placed in an endoscopic pouch and removed through the infraumbilical opening. The gallbladder was retrieved and sent to pathology for analysis. Several stones were evident within the gallbladder. The liver bed was inspected for adequate hemostasis. This was aided by endoscopic application of Nanda to the liver bed. Once adequate hemostasis was achieved, the pneumoperitoneum was evacuated, and the instrumentation removed. The fascia of the infraumbilical opening was closed with interrupted [id number] 0 Vicryl using S retractors. The skin edges of the port sites were approximated with subcuticular 4-0 Vicryl. The incisions were sealed with Dermabond dermal adhesive. The patient was taken to PACU in stable condition. Needle, sponge, and instrument counts were correct at the close of the case. Total volume of 0.25% bupivacaine with 1-200,000 epinephrine used during this procedure, 30 mL.
[2016-10-31] MEDS: *HR* Promethazine 25 MG/ML VIAL IVP PRN (15:52)
--- NOTE | 2016-10-31 16:16 | Internal Med Progress Note ---
Date of Encounter: 10/31/16 Time of Encounter: 16:14 - Assessment and plan (1) Abdominal pain Current Visit: Yes Status: Acute Assessment and plan: better today, underwent EUS and ERCP with removal of CBD stone. currently NPO for possible lap cholecystectomy today. denies abdominal pain today. no nausea pr vomtiitng Qualifiers: Abdominal location: generalized Qualified Code(s): R10.84 - Generalized abdominal pain (2) Elevated liver function tests Current Visit: Yes Status: Acute Assessment and plan: repeat lfts much better today. no signs and symptoms of cholangitis. continue to monitor (3) Obstructive jaundice Current Visit: Yes Status: Acute Assessment and plan: Patient with gallstone now with obstructive jaundice concerning for a CBD stone in the bile duct. No signs symptom of cholangitis. CT and ultrasound with no obvious CBD stone. s/p EUS with ERCP and removal of CBD stone. consulted surgery for lap cholecystectomy, angel lfollow recommendations from sx - Subjective Interval history: Patient admitted for abdominal pain. At ED she was noted to have elevated liver function along with hyperbilirubinemia. Patient has gallstone with obstructive jaundice, no signs and symptoms of cholangitis, CT and ultrasound with no obvious CBD stone. GI was consulted, status post EUS with removal of the CBD stone. seen at the bedside, reports feeling much better, consulted surgery for GB removal. - Constitutional Vitals: Temp Pulse Resp BP Pulse Ox 97.4 F L 65 16 132/86 99 10/31/16 15:26 10/31/16 15:26 10/31/16 15:26 10/31/16 15:26 10/31/16 15:26 General appearance: Present: cooperative, A&O X 3, obese, answers questions appropriately Exam: Head exam: Present: atraumatic - Eye Eye exam: Present: scleral icterus, sclera anicteric - Neck Neck exam general surgery: Present: supple - Respiratory Additional comments: BiLateral good air entry no crackles wheezing - Cardiovascular Cardiovascular exam: Present: +S1, +S2 - GI/Abdominal Additional comments: Soft does has mild tenderness in the epigastric area. - Extremities Exam Extremities exam: Present: normal inspection, warm Additional comments: No clubbing cyanosis or edema - Skin Skin exam: Present: dry, warm Additional comments: No obvious yellow discoloration Internal Medicine: Result - Labs CBC & Chem 7: 10/31/16 04:56 10/31/16 04:56 Labs: Short CBC 10/31/16 Range/Units 04:56 WBC 10.1 (4.3-11.1) K/mcL Hgb 12.2 (11.5-15.4) g/dL Hct 38.5 (35.3-44.9) % Plt Count 244 (140-400) K/mcL Neutrophils # 6.9 (1.6-8.9) K/mcL BMP 10/31/16 04:56 Sodium 141 Potassium 3.5 Chloride 109 Carbon Dioxide 24 BUN 8 Creatinine 0.62 Glucose 91 Calcium 8.8 Liver Function 10/31/16 Range/Units 04:56 Total Bilirubin 1.8 H D (0.2-1.2) mg/dL AST 108 H (5-34) Units/L ALT 513 H (0-55) Units/L Alkaline Phosphatase 257 H (38-126) Units/L Albumin 3.3 L (3.5-5.0) g/dL Consult Discharge Plan - Plan Referrals: NO,PCP [Primary Care Provider] -
[2016-10-31] MEDS: *HR* OxyCODONE/APAP 5/325 TABLET PO PRN (19:57)
--- NOTE | 2016-10-31 21:53 | Electrocardiograph Report ---
[address] [address] Test Date: 2016-10-31 Pat Name: Alisa Perry Department: 115 Room: 3A45 Gender: F Application Developer Manager: CAT : 1990 Requested By: Srini Grajeda Order Number: [id number] Reading MD: Lesly Salgado Measurements Intervals [place] Rate: 43 P: 40 SC: 158 QRS: -2 QRSD: 101 T: 8 QT: 459 QTc: 406 Interpretive Statements SINUS BRADYCARDIA INCOMPLETE RIGHT BUNDLE BRANCH BLOCK SEPTAL MYOCARDIAL INFARCTION, OF INDETERMINATE AGE Electronically Signed On 10-31-2016 21:52:00 EDT by Lesly Salgado
[2016-11-01] MEDS: *HR* OxyCODONE/APAP 5/325 TABLET PO PRN ×2 (01:22→08:27)
[2016-11-01 03:31] LABS: Basophils % 0.2 %; Eosinophils # 0.1 K/mcL (0.0-0.6); Eosinophils % 0.8 %; Hematocrit 36.5 % (35.3-44.9); Hemoglobin 11.8 g/dL (11.5-15.4); Immature Granulocytes % 0.5 % (0-4); Lymphocytes # 2.5 K/mcL (0.6-4.6); Lymphocytes % 24.9 %; Mean Corpuscular HGB Conc 32.3 g/dL (31.6-35.5); Mean Corpuscular Hemoglobin 26.3 pg (28.0-33.3); Mean Corpuscular Volume 81.5 fL (83.0-100.0); Mean Platelet Volume 10.1 fL (9.4-12.4); Monocytes # 0.6 K/mcL (0.0-1.3); Monocytes % 5.8 %; Neutrophils # 6.7 K/mcL (1.6-8.9); Platelet Count 254 K/mcL (140-400); Red Blood Count 4.48 M/mcL (3.82-4.97); Red Cell Distribution Width 13.2 % (11.5-14.5); Segmented Neutrophils % 67.8 %
[2016-11-01 03:49] LABS: Alanine Aminotransferase 350 Units/L (0-55); Albumin 3.3 g/dL (3.5-5.0); Alkaline Phosphatase 197 Units/L (38-126); Amylase 34 Units/L (25-125); Aspartate Amino Transferase 62 Units/L (5-34); BUN/Creatinine Ratio 13 (6-26); Blood Urea Nitrogen 8 mg/dL (7-20); Calcium 8.9 mg/dL (8.6-10.8); Carbon Dioxide 25 mEq/L (19-29); Chloride 107 mEq/L (98-109); Globulin 3.2 g/dL (2.4-3.5); Glucose 98 mg/dL (70-99); Lipase 16 Units/L (8-78); Osmolality,Calculated 290 (280-300); Potassium 3.6 mEq/L (3.5-4.5); Sodium 141 mEq/L (136-145); Total Protein 6.5 g/dL (6.0-8.3); eGFR For African Americans > 60 (> 60); eGFR For Non-African Americans > 60 (> 60)
[2016-11-01] MEDS: *HR* Promethazine 25 MG/ML VIAL IVP PRN (08:33)
--- NOTE | 2016-11-01 11:12 | General Surgery Progress Note ---
Date of Encounter: 11/01/16 Time of Encounter: 11:07 Subjective Patient reports: feels better Narrative: General Surgery: Feeling much better; operative symptoms resolved, mild to moderate infraumbilical incisional pain. Patient tolerating diet, no nausea or vomiting. Afebrile, 98.6; pulse 70, respirations 16, blood pressure 122/80. SPO2 on room air 98% ` Lungs: Clear Abdomen: Obese but soft with minimal tenderness infraumbilical port site. The ports are without inflammation or drainage; healing well Postop labs: White count 10.0, hemoglobin 11.8, hematocrit 36.5; platelet count 254,000 Electrolytes, BUN, creatinine stable and within normal limits Bilirubin 1.0, AST 62, ALT 350; alkaline phosphatase 197 - all improved Impression: Obstructive jaundice secondary to choledocholithiasis - status post ERCP with Choledocholithotomy - resolved Cholecystitis cholelithiasis- postoperative day 1 status post laparoscopic cholecystectomy Hyperbilirubinemia resolved Abnormal LFTs much improved Acceptable postoperative status to consider discharge home if medically stable Recommendations: If discharged home, follow up with me on 11/05/16 Regular diet Patient may shower, wash incisions with soap and water Activity as tolerated, lifting limited to 20 pounds. medical management per Hospitalist Service Objective Vital Signs - Last 8 Hours Temp Pulse Resp BP Pulse Ox 11/01/16 10:37 98.6 F 70 16 122/80 98 11/01/16 06:53 98.1 F 53 18 125/80 96 11/01/16 04:23 97.7 F 50 16 120/77 95 Intake and Output 10/31/16 11/01/16 11/01/16 23:59 07:59 15:59 Intake Total 0 / 0 0 / 0 1335 / 1335 Output Total 2400 / 2400 0 / 0 100 / 100 Balance -2400 / -2400 0 / 0 1235 / 1235 Intake: IV Fluids 215 / 215 Lactated Ringers 1,000 ML 215 / 215 @ 50 mls/hr IVC .Q20H SWEETIE Rx#:[id number] Oral 0 / 0 0 / 0 1120 / 1120 Output: Urine 2400 / 2400 0 / 0 100 / 100 Other: Meal Breakfast Percent of Meal Consumed 100% # Voids 1 - Labs 11/01/16 03:18 11/01/16 03:18 Diabetes panel 11/01/16 Range/Units 03:18 Sodium 141 (136-145) mEq/L Potassium 3.6 (3.5-4.5) mEq/L Chloride 107 (98-109) mEq/L Carbon Dioxide 25 (19-29) mEq/L BUN 8 (7-20) mg/dL Creatinine 0.60 (0.57-1.11) mg/dL Glucose 98 (70-99) mg/dL Calcium 8.9 (8.6-10.8) mg/dL AST 62 H (5-34) Units/L ALT 350 H (0-55) Units/L Alkaline Phosphatase 197 H (38-126) Units/L Albumin 3.3 L (3.5-5.0) g/dL Calcium panel 11/01/16 Range/Units 03:18 Calcium 8.9 (8.6-10.8) mg/dL Albumin 3.3 L (3.5-5.0) g/dL Pituitary panel 11/01/16 Range/Units 03:18 Sodium 141 (136-145) mEq/L Potassium 3.6 (3.5-4.5) mEq/L Chloride 107 (98-109) mEq/L Carbon Dioxide 25 (19-29) mEq/L BUN 8 (7-20) mg/dL Creatinine 0.60 (0.57-1.11) mg/dL Glucose 98 (70-99) mg/dL Calcium 8.9 (8.6-10.8) mg/dL Adrenal panel 11/01/16 Range/Units 03:18 Sodium 141 (136-145) mEq/L Potassium 3.6 (3.5-4.5) mEq/L Chloride 107 (98-109) mEq/L Carbon Dioxide 25 (19-29) mEq/L BUN 8 (7-20) mg/dL Creatinine 0.60 (0.57-1.11) mg/dL Glucose 98 (70-99) mg/dL Calcium 8.9 (8.6-10.8) mg/dL Total Bilirubin 1.0 (0.2-1.2) mg/dL AST 62 H (5-34) Units/L ALT 350 H (0-55) Units/L Alkaline Phosphatase 197 H (38-126) Units/L Albumin 3.3 L (3.5-5.0) g/dL Consult Discharge Plan - Plan Referrals: NO,PCP [Primary Care Provider] -
--- NOTE | 2016-11-01 11:47 | Discharge Summary ---
Date of Encounter: 11/01/16 Time of Encounter: 11:45 - Discharge Diagnosis (1) Abdominal pain Priority: Primary Status: Acute Qualifiers: Abdominal location: generalized Qualified Code(s): R10.84 - Generalized abdominal pain (2) Elevated liver function tests Priority: Primary Status: Acute (3) Obstructive jaundice Priority: Primary Status: Acute - Discharge Medications Prescriptions: Ondansetron [Zofran] 4 mg PO Q8HR #20 tablet OxyCODONE/APAP 5/325 [Percocet 5/325 MG] 1 each PO Q6H PRN #30 tablet PRN Reason: pain not relieved by Tylenol Home Medications: Ibuprofen 800 mg PO TID PRN 10/30/16 [History] Ondansetron [Zofran] 4 mg PO Q8HR #20 tablet 11/01/16 [Rx] OxyCODONE/APAP 5/325 [Percocet 5/325 MG] 1 each PO Q6H PRN #30 tablet 11/01/16 [ Rx] Allergies/Adverse Reactions: Allergies No Known Allergies Allergy (Verified 10/29/16 22:10) Procedures/tests Complete & Pending: Procedures Performed prior 72 hours Category Date Time Status ECG 12 lead ECG [ECG] Routine Y 10/30/16 20:06 Completed EKG [ECG 12 lead ECG] [ECG] AM 0600 Y 10/31/16 06:00 Completed Date of admission: 10/30/16 17:18 Primary care physician: PCP NO Discharging clinician: Sonya Desai Anticipated date of discharge: 11/01/16 - Patient Status Disposition: Home, Self-Care Condition: Fair Functional capacity at discharge: independent ambulation Overall status at discharge: patient is back to baseline - Discharge Instructions Follow Up With: Nigel Bose MD [Non-Partnered Physician] - 11/05/16 3:40 pm Alisa Dunn CNP [Advanced Practice Nurse] - 12/24/16 1:45 pm (Please bring your photo ID, insurance card, medications you are on and the new patient packet that will be mailed to you. If you need to cancel your appt. please give a 24 hour notice. Thank you) - Diet and Activity Activity: resume usual activities as tolerated Diet: regular diet Interval History: Ms. Perry is a 26 year old female with no significant past medical history who presented to the ER with complaints of left back and right upper quadrant abdominal pain. She was found to have elevated liver function testing. Patient with gallstone now with obstructive jaundice concerning for a CBD stone in the bile duct. No signs symptom of cholangitis. CT and ultrasound with no obvious CBD stone. Endoscopic ultrasound and ERCP was completed by Dr. Bundy 10/30/16 with identification and evacuation of multiple distal common duct stones. Since the ERCP with choledocholirthotomy the patient is feeling much improved. The abdominal pain is resolved, there is been no nausea or vomiting. Surgery was consulted to address the cholelithiasis. Treatment options include surgery today versus as an outpatient risking recurrent biliary colic as well as obstructive jaundice. The patient is a reasonable candidate for laparoscopic cholecystectomy but understands that an open cholecystectomy may become necessary. The patient wishes to proceed with surgery. she underwent lap cholecystectomy and is doig well post op. she will be dc today in stable condition to f.u as OP with DR. Bose. Hospital course: Ms. Perry is a 26 year old female Time spent discussing smoking cessation with patient: more than 10 minutes - Time Spent with Patient Total time spent providing and/or coordinating discharge services: Greater than 30 minutes - Constitutional Vitals: Temp Pulse Resp BP Pulse Ox 98.6 F 70 16 122/80 98 11/01/16 10:37 11/01/16 10:37 11/01/16 10:37 11/01/16 10:37 11/01/16 10:37 General appearance: Present: cooperative, A&O X 3, obese, answers questions appropriately Exam: Head exam: Present: atraumatic - Eye Eye exam: Present: sclera anicteric - Neck Neck exam general surgery: Present: supple - Respiratory Additional comments: BiLateral good air entry no crackles wheezing - Cardiovascular Cardiovascular exam: Present: +S1, +S2 - GI/Abdominal Additional comments: Soft , non tender - Extremities Exam Extremities exam: Present: normal inspection, warm Additional comments: No clubbing cyanosis or edema - Skin Skin exam: Present: dry, warm Additional comments: No obvious yellow discoloration
[2016-11-01 14:44] VITALS: BP 114/73
== END 2016-11-01 15:55 | disposition home or self-care (01) | DRG 263 ==
LOC: 3ANU 22:09 → EMEROO 22:09 → SUATTDRO 10-30 06:24 → 3ANU 10-30 07:18
PROVIDERS: ADMIT Internal Medicine; ATTEND Internal Medicine
PROC: ENDOEUS (2016-10-30 12:00)